=== PATIENT | male | born 1960 | race Caucasian/White ===

== ENCOUNTER 2021-04-16 10:47 | Emergency (ER) | payer MEDICAID ==
[~2021-04-16] VITALS: Ht 170.2 cm; Wt 75.7 kg
[2021-04-16 11:39] LABS: BASOPHILS # (AUTO) 0.1 X10'3 (0-0.2); BASOPHILS % (AUTO) 0.7 % (0-1); EOSINOPHILS # (AUTO) 0.1 X10'3 (0-0.9); HEMATOCRIT 50.3 % (42.0-52.0); LYMPHOCYTES # (AUTO) 2.3 X10'3 (1.1-4.8); LYMPHOCYTES % (AUTO) 20.8 % (21-51); MEAN CORPUSCULAR HGB CONC 33.7 g/dL (33.0-36.5); MEAN CORPUSCULAR VOLUME 94.8 FL (78-98); MEAN PLATELET VOLUME 8.9 FL (7.4-10.4); MONOCYTES # (AUTO) 0.7 X10'3 (0-0.9); MONOCYTES % (AUTO) 6.3 % (2-12); NEUTROPHILS % (AUTO) 71.2 % (42-75); PLATELET COUNT 248 X10'3 (140-440); RED CELL DISTRIBUTION WIDTH 13.7 % (11.5-14.5); WHITE BLOOD COUNT 11.2 X10'3 (4.5-11.0)
[2021-04-16 11:47] LABS: ALANINE AMINOTRANSFERASE 44 U/L (12-78); ALBUMIN/GLOBULIN RATIO 0.9 (1.1-1.5); ALKALINE PHOSPHATASE 148 IU/L (46-116); ANION GAP 13 (8-16); ASPARTATE AMINO TRANSFERASE 19 U/L (10-37); BILIRUBIN,TOTAL 0.5 MG/DL (0.1-1.0); BLOOD UREA NITROGEN 12 MG/DL (7-18); CALCIUM 9.4 MG/DL (8.5-10.1); CHLORIDE 107 MMOL/L (99-107); GLUCOSE 122 MG/DL (70-104); LIPASE 85 U/L (73-393); POTASSIUM 4.1 MMOL/L (3.5-5.1); SODIUM 142 MMOL/L (135-145); TOTAL CARBON DIOXIDE 21.6 MMOL/L (24-32); TOTAL PROTEIN 8.4 G/DL (6.4-8.2); eGFR 77 ML/MIN
[2021-04-16] MEDS ORDERED: morphine 4 MG/ML inj SYRINge IV ONE (12:35)
[2021-04-16 14:40] LABS: CLARITY,URINE CLEAR (Clear); COLOR,URINE YELLOW (Yellow); GLUCOSE, URINE NEGATIVE (Neg); KETONES,URINE NEGATIVE (Neg); LEUKOCYTE ESTERASE ,URINE NEGATIVE (Neg); NITRITES, URINE NEGATIVE (Neg); OCCULT BLOOD,URINE NEGATIVE (Neg); PH,URINE 6.5 (4.8-8.0); PROTEIN,URINE TRACE mg/dl (Neg); UROBILINOGEN,URINE 0.2 E.U/dL (0.2-1.0)
[2021-04-16 14:44] LABS: UA COLLECTION TYPE VOIDED
[2021-04-16 14:45] LABS: BACTERIA,URINE NONE SEEN /HPF (Neg); MUCUS STRANDS FEW /LPF (Neg); RBC,URINE 0-2 /HPF (0-2); SQUAMOUS EPITHELIAL CELL,UR NONE SEEN /LPF (FEW); WBC,URINE NONE SEEN /HPF (0-4)
[2021-04-16] MEDS ORDERED: DICY10CA88 PO (14:52)
[2021-04-16] MEDS ORDERED: oxyCODONE/APAP 5-325mg tablet PO ONE (15:10)
[2021-04-16 15:17] VITALS: BP 125/78
== END 2021-04-16 15:19 | disposition home or self-care (01) ==
LOC: ER 10:49
DX: R10.30 Lower abdominal pain, unspecified (principal); R19.7 Diarrhea, unspecified; R30.0 Dysuria; I25.2 Old myocardial infarction; Z87.442 Personal history of urinary calculi; Z95.1 Presence of aortocoronary bypass graft; Z79.899 Other long term (current) drug therapy
CPT/HCPCS: 36415; 80053; 81001; 83605; 83690; 85025; 96374; 99285; J2270

== ENCOUNTER 2022-03-30 20:26 | Emergency (ER) | payer MEDICAID ==
[~2022-03-30] VITALS: Ht 170.2 cm; Wt 78.5 kg
[~2022-03-30 20:26] MED LIST: DICY10CA88 PO
[2022-03-30] MEDS ORDERED: aspirin 81mg tab.chew PO ONE (21:10)
[2022-03-30] MEDS ORDERED: nitroGLYCERIN 0.4mg SUBLingual tab SL PRN (21:10)
[2022-03-30] MEDS ORDERED: ipratropium/albuterol 3ml nebule NEB ONE (21:20)
[2022-03-30 21:35] LABS: BASOPHILS # (AUTO) 0.1 X10'3 (0-0.2); BASOPHILS % (AUTO) 1.1 % (0-1); EOSINOPHILS # (AUTO) 0.1 X10'3 (0-0.9); EOSINOPHILS % (AUTO) 1.1 % (0-6); HEMATOCRIT 46.9 % (42.0-52.0); HEMOGLOBIN 15.5 g/dl (14.0-17.9); LYMPHOCYTES # (AUTO) 3.2 X10'3 (1.1-4.8); LYMPHOCYTES % (AUTO) 27.5 % (21-51); MEAN CORPUSCULAR HEMOGLOBIN 31.2 PG (27.0-31.0); MEAN CORPUSCULAR VOLUME 94.7 FL (78-98); MEAN PLATELET VOLUME 8.8 FL (7.4-10.4); MONOCYTES # (AUTO) 0.9 X10'3 (0-0.9); NEUTROPHILS # (AUTO) 7.3 X10'3 (1.8-7.7); NEUTROPHILS % (AUTO) 62.3 % (42-75); PLATELET COUNT 233 X10'3 (140-440); RED BLOOD COUNT 4.96 X10'6 (4.70-6.10); RED CELL DISTRIBUTION WIDTH 13.3 % (11.5-14.5); WHITE BLOOD COUNT 11.8 X10'3 (4.5-11.0)
[2022-03-30 21:51] LABS: ALANINE AMINOTRANSFERASE 28 U/L (12-78); ALBUMIN 3.6 G/DL (3.4-5.0); ALKALINE PHOSPHATASE 136 IU/L (46-116); ANION GAP 8 (8-16); ASPARTATE AMINO TRANSFERASE 14 U/L (10-37); BILIRUBIN,TOTAL 0.3 MG/DL (0.1-1.0); BLOOD UREA NITROGEN 16 MG/DL (7-18); BUN/CREATININE RATIO 13.2 (5.4-32.0); CALCIUM 8.5 MG/DL (8.5-10.1); CHLORIDE 112 MMOL/L (99-107); CREATININE 1.21 MG/DL (0.60-1.10); GLUCOSE 137 MG/DL (70-104); SODIUM 142 MMOL/L (135-145); TOTAL CARBON DIOXIDE 21.7 MMOL/L (24-32); TOTAL PROTEIN 7.3 G/DL (6.4-8.2); eGFR 61 ML/MIN
[2022-03-30] MEDS ORDERED: sucralfate 1 gm tablet PO ONE (22:10)
[2022-03-30] MEDS ORDERED: mag hydrox/Alum hydrox/simeth 30ml oral suspension PO ONE (22:10)
[2022-03-30] MEDS ORDERED: LIDOcaine Viscous 15ml cup MM ONE (22:10)
[2022-03-30] MEDS ORDERED: HYDR-3965 PO (23:40)
[2022-03-30] MEDS ORDERED: HYDROcodone/acetaminophen 10/325mg tab PO ONE (23:45)
[2022-03-31 00:46] VITALS: BP 110/69
== END 2022-03-31 00:48 | disposition home or self-care (01) ==
LOC: ER 20:26
DX: I25.118 Atherosclerotic heart disease of native coronary artery with other forms of angina pectoris (principal); R07.82 Intercostal pain; E78.00 Pure hypercholesterolemia, unspecified; J44.9 Chronic obstructive pulmonary disease, unspecified; Z87.442 Personal history of urinary calculi; Z79.899 Other long term (current) drug therapy
CPT/HCPCS: 36415; 71045; 80053; 83880; 84484; 85025; 93005; 94640; 94760; 99285

== ENCOUNTER 2023-12-09 15:55 | Inpatient (IN) | payer MEDICAID ==
[~2023-12-09] VITALS: Ht 170.2 cm; Wt 85.5 kg
[2023-12-09 18:36] LABS: BASOPHILS # (AUTO) 0.1 X10'3 (0-0.2); EOSINOPHILS % (AUTO) 0.1 % (0-6); HEMOGLOBIN 15.9 g/dl (14.0-17.9); MEAN PLATELET VOLUME 8.5 FL (7.4-10.4); NEUTROPHILS # (AUTO) 17.9 X10'3 (1.8-7.7); WHITE BLOOD COUNT 21.6 X10'3 (4.5-11.0)
[2023-12-09 18:39] LABS: BASOPHILS % (AUTO) 0.4 % (0-1); HEMATOCRIT 47.1 % (42.0-52.0); LYMPHOCYTES # (AUTO) 2.1 X10'3 (1.1-4.8); LYMPHOCYTES % (AUTO) 9.8 % (21-51); MEAN CORPUSCULAR HEMOGLOBIN 31.8 PG (27.0-31.0); MEAN CORPUSCULAR HGB CONC 33.7 g/dL (33.0-36.5); MEAN CORPUSCULAR VOLUME 94.3 FL (78-98); MONOCYTES # (AUTO) 1.4 X10'3 (0-0.9); MONOCYTES % (AUTO) 6.6 % (2-12); NEUTROPHILS % (AUTO) 83.1 % (42-75); PLATELET COUNT 263 X10'3 (140-440); RED BLOOD COUNT 4.99 X10'6 (4.70-6.10); RED CELL DISTRIBUTION WIDTH 13.7 % (11.5-14.5)
[2023-12-09 18:48] LABS: BILIRUBIN,URINE SMALL (Neg); CLARITY,URINE CLOUDY (Clear); COLOR,URINE AMBER (Yellow); GLUCOSE, URINE NEGATIVE (Neg); KETONES,URINE 15 mg/dl (Neg); LEUKOCYTE ESTERASE ,URINE NEGATIVE (Neg); NITRITES, URINE NEGATIVE (Neg); OCCULT BLOOD,URINE SMALL (Neg); PROTEIN,URINE 100 mg/dl (Neg); UROBILINOGEN,URINE 0.2 E.U/dL (0.2-1.0)
[2023-12-09 18:50] LABS: ALANINE AMINOTRANSFERASE 27 U/L (12-78); ALBUMIN 4.2 G/DL (3.4-5.0); ALBUMIN/GLOBULIN RATIO 1.1 (1.1-1.5); ALKALINE PHOSPHATASE 88 IU/L (46-116); ANION GAP 12 (8-16); ASPARTATE AMINO TRANSFERASE 19 U/L (10-37); BILIRUBIN,TOTAL 0.6 MG/DL (0.1-1.0); BLOOD UREA NITROGEN 21 MG/DL (7-18); BUN/CREATININE RATIO 14.1 (10.0-20.0); CALCIUM 9.6 MG/DL (8.5-10.1); CHLORIDE 102 MMOL/L (99-107); CREATININE 1.49 MG/DL (0.60-1.10); GLUCOSE 127 MG/DL (70-104); LIPASE 43 U/L (16-77); SODIUM 138 MMOL/L (135-145); TOTAL CARBON DIOXIDE 24.5 MMOL/L (24-32); TOTAL PROTEIN 8.1 G/DL (6.4-8.2); eCRCL 49 ML/MIN; eGFR 48 ML/MIN
[2023-12-09 18:56] LABS: UA COLLECTION TYPE VOIDED
[2023-12-09 18:58] LABS: SQUAMOUS EPITHELIAL CELL,UR FEW /LPF (FEW)
[2023-12-09 18:59] LABS: MUCUS STRANDS FEW /LPF (Neg); RBC,URINE 0-2 /HPF (0-2); RENAL CELLS, URINE FEW /HPF; WBC,URINE 0-4 /HPF (0-4)
[2023-12-09 19:00] LABS: BACTERIA,URINE 2+ /HPF (Neg)
[2023-12-09] MEDS ORDERED: morphine 4 MG/ML inj SYRINge IV ONE (19:40)
[2023-12-09] MEDS ORDERED: ondansetron/PF 4mg/2ml inj IV ONE (19:40)
[2023-12-09] MEDS ORDERED: normal saline 1000ML IV soln IV ONE (19:40)
[2023-12-09] MEDS ORDERED: piperacillin/tazo 3.375gm/50ml 50 ML IV ONE (21:20)
[2023-12-09 21:40] LABS: CREATINE KINASE 159 U/L (39-308)
[2023-12-09] MEDS ORDERED: metoprolol PO (23:36)
[2023-12-09] MEDS ORDERED: FLO0.4C PO (23:36)
[2023-12-09] MEDS ORDERED: [UNRECOGNIZED DRUG - OTHER] (23:38)
[2023-12-09] MEDS ORDERED: SIMV-42 PO (23:38)
[2023-12-09] MEDS ORDERED: ASPI81TA30 PO (23:38)
[2023-12-09] MEDS ORDERED: nicotine 21mg patch - 24 hr TD ONE (23:50)
[2023-12-09] MEDS ORDERED: HYDROmorphone 1 mg/ml syringe IV ONE (23:50)
[2023-12-10] VITALS (12 sets, daily range): BP systolic 138–141; BP diastolic 80–92; PULSE 84–117; RESP 15–19; TEMP 98.2–98.8; O2SAT 91–98
[2023-12-10] MEDS ORDERED: magnesium Cl slow-release 64mg tablet PO PRN (00:05)
[2023-12-10] MEDS ORDERED: potassium Cl 40MEQ/1/2NS 520ml 520 ML IV PRN (00:05)
[2023-12-10] MEDS ORDERED: magnesium 2GM in 50ml NS 50 ML IV PRN (00:05)
[2023-12-10] MEDS ORDERED: magnesium 4gm in 100ml NS 100 ML IV PRN (00:05)
[2023-12-10] MEDS ORDERED: morphine 2 MG/ML inj. syringe IV PRN (00:05)
[2023-12-10] MEDS ORDERED: potassium Cl 20 mEq SR tablet PO PRN ×2 (00:05)
[2023-12-10] MEDS: normal saline 1000ml 1,000 ML IV SCH ×3 (00:26→19:39)
[2023-12-10] MEDS: metroNIDAZOLE-Flagyl 500mg/NS 100 ML IV SCH ×3 (01:14→17:54)
[2023-12-10] MEDS: ipratropium/albuterol 3ml nebule NEB SCH ×6 (01:40→23:00)
[2023-12-10] MEDS: ciprofloxacin lact 400MG/200ML 200 ML IV SCH ×2 (02:03→13:55)
[2023-12-10] MEDS: ondansetron/PF 4mg/2ml inj IV PRN ×3 (05:10→17:53)
[2023-12-10] MEDS: pantoprazole 40 MG vial IV SCH ×2 (07:22→19:35)
[2023-12-10] MEDS ORDERED: morphine 4 MG/ML inj SYRINge IV ONE (07:50)
[2023-12-10] MEDS: K and/or MAG REPLACEMENT MC SCH ×2 (08:00→19:42)
[2023-12-10 08:19] LABS: MAGNESIUM 1.8 MG/DL (1.5-2.4); POTASSIUM 3.6 MMOL/L (3.5-5.1)
[2023-12-10] MEDS ORDERED: HYDROmorphone 2mg tablet PO PRN (10:35)
[2023-12-10] MEDS: HYDROmorphone inj. 0.5 MG/0.5 ML DISP.SYRIN IV PRN ×3 (11:24→21:50)
[2023-12-10] MEDS ORDERED: CETI10TA19 PO (12:50)
[2023-12-10] MEDS ORDERED: DICY10CA88 PO (12:50)
[2023-12-10] MEDS ORDERED: FAMO40TA58 PO (12:50)
[2023-12-10] MEDS ORDERED: PROC5TAB10 PO (12:50)
[2023-12-10] MEDS ORDERED: PANT20TA18 PO (12:50)
[2023-12-10] MEDS ORDERED: DOCU100C40 PO (12:50)
[2023-12-10 19:15] LABS: BASOPHILS # (AUTO) 0.1 X10'3 (0-0.2); BASOPHILS % (AUTO) 0.7 % (0-1); EOSINOPHILS # (AUTO) 0.2 X10'3 (0-0.9); EOSINOPHILS % (AUTO) 1.2 % (0-6); HEMATOCRIT 39.9 % (42.0-52.0); HEMOGLOBIN 13.2 g/dl (14.0-17.9); MEAN CORPUSCULAR HEMOGLOBIN 31.8 PG (27.0-31.0); MEAN CORPUSCULAR HGB CONC 33.2 g/dL (33.0-36.5); MEAN CORPUSCULAR VOLUME 95.7 FL (78-98); MEAN PLATELET VOLUME 8.1 FL (7.4-10.4); MONOCYTES % (AUTO) 6.8 % (2-12); NEUTROPHILS % (AUTO) 70.3 % (42-75); PLATELET COUNT 199 X10'3 (140-440); RED BLOOD COUNT 4.17 X10'6 (4.70-6.10); WHITE BLOOD COUNT 14.3 X10'3 (4.5-11.0)
[2023-12-11] MEDS: metroNIDAZOLE-Flagyl 500mg/NS 100 ML IV SCH ×2 (00:01→06:50)
[2023-12-11] MEDS: ciprofloxacin lact 400MG/200ML 200 ML IV SCH ×2 (01:21→12:49)
[2023-12-11] MEDS: HYDROmorphone inj. 0.5 MG/0.5 ML DISP.SYRIN IV PRN ×4 (01:48→13:34)
[2023-12-11 02:37] LABS: OCCULT BLOOD STOOL NEGATIVE (Neg)
[2023-12-11] MEDS: ipratropium/albuterol 3ml nebule NEB SCH ×3 (02:54→11:00)
[2023-12-11 06:00] VITALS: BP 145/75; PULSE 91; RESP 16; TEMP 98.6; O2SAT 96
[2023-12-11] MEDS: normal saline 1000ml 1,000 ML IV SCH ×2 (06:05→09:10)
[2023-12-11 06:18] LABS: C DIFF ANTIGEN NEGATIVE (NEGATIVE); C DIFF SPECIMEN=DIARRHEA? ACCEPTABLE; C DIFFICILE TOXINS A&B NEGATIVE (Neg)
[2023-12-11 06:40] LABS: ALBUMIN 2.7 G/DL (3.4-5.0); ANION GAP 10 (8-16); BLOOD UREA NITROGEN 8 MG/DL (7-18); CALCIUM 8.5 MG/DL (8.5-10.1); CHLORIDE 108 MMOL/L (99-107); GLUCOSE 83 MG/DL (70-104); MAGNESIUM 1.8 MG/DL (1.5-2.4); POTASSIUM 3.5 MMOL/L (3.5-5.1); SODIUM 140 MMOL/L (135-145); TOTAL CARBON DIOXIDE 21.9 MMOL/L (24-32); eCRCL 91 ML/MIN; eGFR > 90 ML/MIN
[2023-12-11 06:42] VITALS: PULSE 97; RESP 16; O2SAT 93
[2023-12-11 06:50] VITALS: PULSE 92; RESP 16
[2023-12-11] MEDS: pantoprazole 40 MG vial IV SCH (06:50)
[2023-12-11 06:55] LABS: BASOPHILS # (AUTO) 0.1 X10'3 (0-0.2); BASOPHILS % (AUTO) 0.5 % (0-1); EOSINOPHILS # (AUTO) 0.3 X10'3 (0-0.9); EOSINOPHILS % (AUTO) 2.6 % (0-6); HEMATOCRIT 38.9 % (42.0-52.0); HEMOGLOBIN 12.8 g/dl (14.0-17.9); LYMPHOCYTES # (AUTO) 3.3 X10'3 (1.1-4.8); LYMPHOCYTES % (AUTO) 24.9 % (21-51); MEAN CORPUSCULAR HEMOGLOBIN 31.8 PG (27.0-31.0); MEAN CORPUSCULAR VOLUME 96.6 FL (78-98); MEAN PLATELET VOLUME 8.8 FL (7.4-10.4); MONOCYTES # (AUTO) 0.9 X10'3 (0-0.9); NEUTROPHILS # (AUTO) 8.6 X10'3 (1.8-7.7); PLATELET COUNT 203 X10'3 (140-440); RED BLOOD COUNT 4.03 X10'6 (4.70-6.10); RED CELL DISTRIBUTION WIDTH 13.6 % (11.5-14.5); WHITE BLOOD COUNT 13.2 X10'3 (4.5-11.0)
[2023-12-11] MEDS: K and/or MAG REPLACEMENT MC SCH (08:00)
[2023-12-11 10:00] VITALS: BP 142/88; PULSE 99; RESP 16; TEMP 98; O2SAT 96
[2023-12-11] MEDS ORDERED: METR-159 PO (12:10)
[2023-12-11] MEDS ORDERED: CIPR-259 PO (12:10)
== END 2023-12-11 13:50 | disposition home or self-care (01) | DRG 720 ==
LOC: ER 15:56 → ED HOLD 12-10 00:09 → EDBEDREQ 12-10 03:30 → ORTHO 4S 12-10 19:00
PROVIDERS: ADMIT Internal Medicine; ATTEND Internal Medicine
DX: A41.9 Sepsis, unspecified organism (principal); J44.1 Chronic obstructive pulmonary disease with (acute) exacerbation; A09 Infectious gastroenteritis and colitis, unspecified; E78.00 Pure hypercholesterolemia, unspecified; N40.0 Benign prostatic hyperplasia without lower urinary tract symptoms; K21.9 Gastro-esophageal reflux disease without esophagitis; G89.4 Chronic pain syndrome; I10 Essential (primary) hypertension; F17.210 Nicotine dependence, cigarettes, uncomplicated; I25.10 Atherosclerotic heart disease of native coronary artery without angina pectoris; I25.2 Old myocardial infarction; Z87.442 Personal history of urinary calculi; Z95.1 Presence of aortocoronary bypass graft; Z95.5 Presence of coronary angioplasty implant and graft; Z79.899 Other long term (current) drug therapy; Z79.82 Long term (current) use of aspirin
CPT/HCPCS: 36415; 71045; 74176; 80048; 80053; 81001; 82272; 82550; 83605; 83690; 83735; 84132; 84145; 85025; 87040; 87045; 87046; 87081; 87324; 87449; 89055; 93005; 94640; 94760; 99285; C9113; G0378; J0744; J1170; J2270; J2405; J2543; J3490; J7030